=== PATIENT | female | born 1990 | race Caucasian/White ===

== ENCOUNTER 2016-04-05 17:56 | Emergency (ER) | payer BC, OTHER ==
[~2016-04-05] VITALS: Ht 162.6 cm; Wt 67.0 kg
[~2016-04-05 17:56] MED LIST: CLC100 PO; FRRS300 PO; MISC-836; MTR600X PO; MULT-506 PO; OXYC5TAB PO
[2016-04-05 18:10] VITALS: TEMP 36.5; Ht 162.6 cm; Wt 67.0 kg
[2016-04-05] MEDS ORDERED: ONDANSETRON INJ 2 MG/ML 2 ML VIAL IV STA (19:06)
[2016-04-05] MEDS ORDERED: HYDROmorphone INJ 1 MG/ML SYR IV STA (19:06)
[2016-04-05] MEDS ORDERED: KETOROLAC TROMETHAMINE 30 MG/ML VIAL IV STA (19:06)
[2016-04-05] MEDS ORDERED: SODIUM CHLORIDE 0.9% 1000ML 1,000 ML IV STA (19:06)
--- NOTE | 2016-04-05 19:08 | EMERGENCY ROOM VISIT NOTE ---
History Report prepared by Tevin: Nacho Bajwa Under the Supervision of: Dr. Alek Marie M.D. First contact with patient: 18:49 Chief Complaint: ABDOMINAL PAIN Stated Complaint: SEVERE ABDOMINAL PAIN Nursing Triage Summary: Pt in wc to triage. Pt c/o right back and abd pain that began at 1529 today. Denies urinary symptoms. Associated nausea, denies v/d. Denies injury. Denies hx kidney stone, appy. History of Present Illness The patient is a 25 year old female who presents to the Emergency Room with complaints of persistent right sided abdominal pain since 1529 today. The pain radiates to the patient's back. The pain is severe. She also complains of nausea , and denies vomiting or diarrhea. The patient had a section delivery of her first child 4 months ago. She has not had any other surgeries of the abdomen. She denies any history of kidney stones. Source of History: patient Onset: 1529 today Position: abdomen (right) Symptom Intensity: severe Timing: other (persistent) Associated Symptoms: + nausea, No diarrhea, No vomiting Review of Systems See HPI for pertinent positives & negatives. A total of 10 systems reviewed and were otherwise negative. Past Medical & Surgical Medical Problems: (1) delivery delivered Family History No pertinent family history Social History Smoking Status: Never Smoker Housing Status: lives with family Current/Historical Medications Scheduled Ibuprofen Tab (Advil), 400 MG PO DAILY Multivitamin (Multivitamin), 1 TAB PO DAILY Ondasetron Odt (Zofran Odt), 4 MG SL Q6H Tamsulosin Hcl (Flomax), 0.4 MG PO DAILY Scheduled PRN Oxycodone/Acetaminophen 5MG/325MG (Percocet 5MG/325MG), 1-2 TABLETS PO Q4H PRN for Pain Allergies Coded Allergies: No Known Allergies (Verified , 04/05/16) Physical Exam Vital Signs Date Time Temp Pulse Resp B/P Pulse Ox O2 Delivery O2 Flow Rate FiO2 04/05/16 21:50 60 18 126/82 100 Room Air 04/05/16 20:34 61 18 104/59 100 Room Air 04/05/16 18:10 36.5 66 20 121/73 100 Room Air Physical Exam CONSTITUTIONAL: Moderate painful distress. HEENT: No icterus, moist mucous membranes NECK: No meningismus, trachea is midline. CARDIOVASCULAR: Regular rate, normal perfusion RESPIRATORY: Unlabored breathing. Clear to auscultation. GASTROINTESTINAL: Moderate right lower quadrant tenderness. GENITOURINARY: No flank tenderness MUSCULOSKELETAL: Full range of motion NEUROLOGIC: No acute gross focal deficits. PSYCHIATRIC: Normal affect SKIN: Normal for ethnicity. Medical Decision & Procedures ER Provider Diagnostic Interpretation: CT results as stated below per my review and radiologist interpretation. CT SCAN OF THE ABDOMEN AND PELVIS WITH IV CONTRAST CLINICAL HISTORY: Right lower quadrant abdominal pain. COMPARISON STUDY: Abdominal CT dated 08/30/2006. TECHNIQUE: Following the IV administration of 120 cc of Optiray 320, CT scan of the abdomen and pelvis is performed from the lung bases to the proximal femora. Images are reviewed in the axial, sagittal, and coronal planes. IV contrast was administered without complication. Automated dose control exposure was utilized. CT DOSE: 334.59 mGy.cm FINDINGS: Lung bases: The heart is normal in size and without pericardial effusion. The lung bases are clear. Liver: The contrast-enhanced liver is normal in size, contour, and attenuation. There is no intrahepatic biliary ductal dilatation. The hepatic veins and portal veins are patent. Gallbladder: Unremarkable. Spleen: Normal in size and attenuation. Pancreas: Unremarkable. Adrenal glands: Unremarkable. Kidneys: The contrast enhanced kidneys are normal in size. There is a 5 mm obstructing calculus at the right vesicoureteral junction seen on image 374. This causes moderate right hydroureteronephrosis. There is associated right-sided perinephric stranding and fluid. The right kidney enhances heterogeneously as compared to the left. No additional renal calculi are clearly identified on this contrast-enhanced examination. Abdominal vasculature: The abdominal aorta is normal in course and caliber. Bowel: The small bowel and colon are normal in course and caliber. The appendix is well-visualized and normal. Peritoneum: There is no intraperitoneal free air or abdominal ascites. There is a small fat-containing umbilical hernia. Lymphadenopathy: None. Pelvic viscera: The bladder, uterus, and adnexa are normal as visualized. There are bilateral ovarian follicles. Skeletal structures: There are bilateral pars defects at L5. No anterolisthesis is seen at L5-S1. No lytic or blastic lesions are seen. IMPRESSION: 1. There is a 5 mm obstructing calculus at the right vesicoureteral junction. This causes moderate right hydroureteronephrosis. There is associated right-sided perinephric stranding and fluid. 2. The right kidney enhances heterogeneously. This could be related to obstruction/hydronephrosis. Urinary tract infection is not excluded. Correlation with clinical findings and urinalysis will be required. 3. No additional calculi are clearly identified on this contrast-enhanced examination. Electronically signed by: Hector Rodriguez M.D. 04/05/2016 9:51 PM Laboratory Results 04/05/16 19:24 Red Blood Count 4.63, Mean Corpuscular Volume 86.2, Mean Corpuscular Hemoglobin 30.0, Mean Corpuscular Hemoglobin Concent 34.8, Mean Platelet Volume 10.5, Neutrophils (%) (Auto) 82.8, Lymphocytes (%) (Auto) 11.3, Monocytes (%) (Auto) 5.4, Eosinophils (%) (Auto) 0.1, Basophils (%) (Auto) 0.2, Neutrophils # (Auto) 10.02, Lymphocytes # (Auto) 1.37, Monocytes # (Auto) 0.65, Eosinophils # (Auto) 0.01, Basophils # (Auto) 0.02 04/05/16 19:24 Test 04/05/16 19:15 04/05/16 19:24 Urine Color DK YELLOW Urine Appearance CLOUDY (CLEAR) Urine pH 7.5 (4.5-7.5) Urine Specific [place] 1.024 (1.000-1.030) Urine Protein NEG (NEG) Urine Glucose (UA) NEG (NEG) Urine Ketones 1+ (NEG) Urine Occult Blood 3+ (NEG) Urine Nitrite NEG (NEG) Urine Bilirubin NEG (NEG) Urine Urobilinogen NEG (NEG) Urine Leukocyte Esterase MODERATE (NEG) Urine WBC (Auto) 10-30 /hpf (0-5) Urine RBC (Auto) >30 /hpf (0-4) Urine Hyaline Casts (Auto) 5-10 /lpf (0-5) Urine Epithelial Cells (Auto) >30 /lpf (0-5) Urine Bacteria (Auto) 1+ (NEG) Urine Renal Epithelial Cells /lpf (0-5) White Blood Count 12.10 K/uL (4.8-10.8) Red Blood Count 4.63 M/uL (4.2-5.4) Hemoglobin 13.9 g/dL (12.0-16.0) Hematocrit 39.9 % (37-47) Mean Corpuscular Volume 86.2 fL (80-100) Mean Corpuscular Hemoglobin 30.0 pg (25-34) Mean Corpuscular Hemoglobin Concent 34.8 g/dl (32-36) Platelet Count 207 K/uL (130-400) Mean Platelet Volume 10.5 fL (7.4-10.4) Neutrophils (%) (Auto) 82.8 % Lymphocytes (%) (Auto) 11.3 % Monocytes (%) (Auto) 5.4 % Eosinophils (%) (Auto) 0.1 % Basophils (%) (Auto) 0.2 % Neutrophils # (Auto) 10.02 K/uL (1.4-6.5) Lymphocytes # (Auto) 1.37 K/uL (1.2-3.4) Monocytes # (Auto) 0.65 K/uL (0.11-0.59) Eosinophils # (Auto) 0.01 K/uL (0-0.5) Basophils # (Auto) 0.02 K/uL (0-0.2) RDW Standard Deviation 40.0 fL (36.4-46.3) RDW Coefficient of Variation 12.6 % (11.5-14.5) Immature Granulocyte % (Auto) 0.2 % Immature Granulocyte # (Auto) 0.03 K/uL (0.00-0.02) Anion Gap 10.0 mmol/L (3-11) Est Creatinine Clear Calc Drug Dose 84.1 ml/min Estimated GFR () 94.2 Estimated GFR (Non- 81.3 BUN/Creatinine Ratio 17.6 (10-20) Calcium Level 8.9 mg/dl (8.5-10.1) Labs reviewed by ED physician. Medications Administered Medications (Trade) Dose Ordered Sig/Rachna Route Start Time Stop Time Status Last Admin Dose Admin Sodium Chloride (Nss 1000ml) 1,000 ml @ 0 mls/hr Q0M STAT IV 04/05/16 19:06 04/05/16 19:10 DC 04/05/16 19:34 0 MLS/HR Ketorolac Tromethamine (Toradol Inj) 30 mg NOW STAT IV 04/05/16 19:06 04/05/16 19:10 DC 04/05/16 19:34 30 MG Hydromorphone HCl (Dilaudid Inj) 1 mg PRN STAT IV 04/05/16 19:06 04/05/16 19:10 DC 04/05/16 19:33 1 MG Ondansetron HCl (Zofran Inj) 4 mg NOW STAT IV 04/05/16 19:06 04/05/16 19:10 DC 04/05/16 19:33 4 MG ED Course 185: Past medical records reviewed. The patient was evaluated in room B4a. A complete history and physical examination was performed. 190: Zofran 4 mg IV, Dilaudid 1 mg IV, Toradol 30 mg IV, NSS 1000 ml wide open. 2219: Reassessed the patient. Explained everything with her. She verbalized understanding and agreement of the treatment plan. The patient is ready for discharge. 0: Zofran 4 mg PO home pack, Percocet 5/325 mg PO home pack, Flomax 0.4 mg. Medical Decision Differential diagnosis includes appendicitis, ovarian cyst. 25-year-old presents into the emergency room with acute onset of severe right lower quadrant and flank pain. She was in severe painful distress on my examination with moderate lower quadrant tenderness. CT revealed a 5 mm obstructing stone at the right UVJ. She was comfortable on reexamination no distress at 10 PM. We discussed the importance of the stone passes and she agrees to return for any worsening worrisome symptoms. Given prescriptions for Flomax, antiemetics and pain. Impression Primary Impression: Kidney stone Scribe Attestation The scribe's documentation has been prepared under my direction and personally reviewed by me in its entirety. I confirm that the note above accurately reflects all work, treatment, procedures, and medical decision making performed by me. Departure Information Dispostion Home / Self-Care Prescriptions Tamsulosin Hcl (FLOMAX) 0.4 Mg Cap 0.4 MG PO DAILY, #10 CAP Prov: Alek Marie MD 04/05/16 Ondasetron Odt (ZOFRAN ODT) 4 Mg Tab 4 MG SL Q6H for Nausea, #20 TAB Prov: Alek Marie MD 04/05/16 Oxycodone/Acetaminophen 5MG/325MG (PERCOCET 5MG/325MG) Tab 1-2 TABLETS PO Q4H Y for Pain, #20 TAB Prov: Alek Marie MD 04/05/16 Referrals No Doctor, Assigned (PCP) Forms HOME CARE DOCUMENTATION FORM, IMPORTANT VISIT INFORMATION Patient Instructions A Signature Page, Kidney Stones - [facility], Formerly [facility]
[2016-04-05 19:36] LABS: BASO % 0.2 %; BASO ABS # 0.02 K/uL (0-0.2); COMPLETE YES; EOS % 0.1 %; HEMATOCRIT 39.9 % (37-47); IG% 0.2 %; LYMPH % 11.3 %; LYMPH ABS # 1.37 K/uL (1.2-3.4); MEAN CELL VOLUME 86.2 fL (80-100); MEAN CORPUSCULAR HGB CONC 34.8 g/dl (32-36); MEAN PLATELET VOLUME 10.5 fL (7.4-10.4); MONO % 5.4 %; NEUT % 82.8 %; PLATELET COUNT 207 K/uL (130-400); RED BLOOD COUNT 4.63 M/uL (4.2-5.4)
[2016-04-05 19:45] LABS: URINE APPEARANCE CLOUDY (CLEAR); URINE BILIRUBIN NEG (NEG); URINE COLOR DK YELLOW; URINE EPITHELIAL CELL AUTO >30 /lpf (0-5); URINE NITRITE NEG (NEG); URINE PH 7.5 (4.5-7.5); URINE SPECIFIC GRAVITY 1.024 (1.000-1.030); UROBILINOGEN NEG (NEG); ZZUR CULT IF INDIC CLEAN CATCH YES
[2016-04-05 19:51] LABS: BUN/CREATININE RATIO 17.6 (10-20); CALCIUM 8.9 mg/dl (8.5-10.1); CREATININE 0.98 mg/dl (0.60-1.20); POTASSIUM 3.6 mmol/L (3.5-5.1)
[2016-04-05 19:52] LABS: REVIEW REQ? YES; SULFASALICYLIC ACID NEG (NEG)
[2016-04-05 19:54] LABS: MANUAL MICROSCOPIC REQUIRED? NO
[2016-04-05] MEDS ORDERED: OPTIRAY 320 IV PRN (21:00)
[2016-04-05] MEDS ORDERED: IBUP-103 PO (21:10)
--- NOTE | 2016-04-05 21:53 | DIAGNOSTIC IMAGING REPORT ---
CT SCAN OF THE ABDOMEN AND PELVIS WITH IV CONTRAST CLINICAL HISTORY: Right lower quadrant abdominal pain. COMPARISON STUDY: Abdominal CT dated 08/30/2006. TECHNIQUE: Following the IV administration of 120 cc of Optiray 320, CT scan of the abdomen and pelvis is performed from the lung bases to the proximal femora. Images are reviewed in the axial, sagittal, and coronal planes. IV contrast was administered without complication. Automated dose control exposure was utilized. CT DOSE: 334.59 mGy.cm FINDINGS: Lung bases: The heart is normal in size and without pericardial effusion. The lung bases are clear. Liver: The contrast-enhanced liver is normal in size, contour, and attenuation. There is no intrahepatic biliary ductal dilatation. The hepatic veins and portal veins are patent. Gallbladder: Unremarkable. Spleen: Normal in size and attenuation. Pancreas: Unremarkable. Adrenal glands: Unremarkable. Kidneys: The contrast enhanced kidneys are normal in size. There is a 5 mm obstructing calculus at the right vesicoureteral junction seen on image 374. This causes moderate right hydroureteronephrosis. There is associated right-sided perinephric stranding and fluid. The right kidney enhances heterogeneously as compared to the left. No additional renal calculi are clearly identified on this contrast-enhanced examination. Abdominal vasculature: The abdominal aorta is normal in course and caliber. Bowel: The small bowel and colon are normal in course and caliber. The appendix is well-visualized and normal. Peritoneum: There is no intraperitoneal free air or abdominal ascites. There is a small fat-containing umbilical hernia. Lymphadenopathy: None. Pelvic viscera: The bladder, uterus, and adnexa are normal as visualized. There are bilateral ovarian follicles. Skeletal structures: There are bilateral pars defects at L5. No anterolisthesis is seen at L5-S1. No lytic or blastic lesions are seen. IMPRESSION: 1. There is a 5 mm obstructing calculus at the right vesicoureteral junction. This causes moderate right hydroureteronephrosis. There is associated right-sided perinephric stranding and fluid. 2. The right kidney enhances heterogeneously. This could be related to obstruction/hydronephrosis. Urinary tract infection is not excluded. Correlation with clinical findings and urinalysis will be required. 3. No additional calculi are clearly identified on this contrast-enhanced examination. Electronically signed by: Hector Rodriguez M.D. 04/05/2016 9:51 PM
[2016-04-05] MEDS ORDERED: OXYC-57 PO (22:14)
[2016-04-05] MEDS ORDERED: ONDA4TAB10 SL (22:17)
[2016-04-05] MEDS ORDERED: TAMS0.4C38 PO (22:18)
[2016-04-05 22:30] VITALS: BP 123/79; PULSE 68; O2SAT 98
[2016-04-05] MEDS ORDERED: PERCOCET HOME PACK PO ONE (22:30)
[2016-04-05] MEDS ORDERED: ONDANSETRON HOME PACK 4MG OD TAB PO ONE (22:30)
[2016-04-05] MEDS ORDERED: TAMSULOSIN HCL 0.4 MG CAP PO ONE (22:30)
== END 2016-04-05 22:31 | disposition home or self-care (01) ==
LOC: C.EDB 17:57 → C.EDA 22:31
DX: N20.2 Calculus of kidney with calculus of ureter (principal); K42.9 Umbilical hernia without obstruction or gangrene

== ENCOUNTER 2021-05-21 22:13 | Inpatient (IN) ==
--- NOTE | 2021-05-22 00:31 | History & Physical Report ---
Date of Service May 22, 2021 Assessment & Plan (1) 40 weeks gestation of : Plan: Patient changed from 3 to 4 cm, contractions are regular Admit, routine labs, epidural with patient request Anticipate vaginal delivery (2) Previous delivery affecting , antepartum: Plan: Previous op reports both reviewed, no contraindication to [place] Counseled about the risk of TOLAC including uterine rupture, and injury or possible , maternal morbidity or mortality. Patient understands the risk of TOLAC, versus repeat delivery, or failed TOLAC resulting in emergency repeat delivery. Would like to proceed with TOLAC at this time. Per ACOG guidelines can TOLAC after 2 previous deliveries, if no other contraindications. cConsents were signed at the bedside. (3) Anemia affecting in third trimester: Plan: CBC pending History of Present Illness Chief Complaint: Contractions Primary Care Provider: NO PCP Patient is a 30-year-old -0-0-2 at 40 weeks and 0 days dated by last menstrual. Consistent with a 8-week ultrasound who presents to labor and delivery overnight for ongoing or worsening contractions starting earlier yesterday. Contractions are now every 2 to 3 minutes. Denies leaking of fluid. Thinks she lost her mucous plug, denies heavy vaginal bleeding but has had some spotting. Notes good movement. Denies headache, blurry vision, right upper quadrant epigastric pain. Otherwise feeling well. No other complaints. Previous op reports were reviewed lower transverse delivery in 2016 and 2019 at [facility]. 2016 was for intolerance to labor, was emergency. 2019 was a scheduled repeat delivery. Patient desires to TOLAC today. Patient has had adequate care, starting at 9 weeks, however has not been seen since 37 weeks gestation. Allergies Allergy/AdvReac Type Severity Reaction Status Date / Time No Known Allergies Allergy Verified 09/08/18 08:59 Home Medications Medication Instructions Recorded Confirmed Type breast pump #1 ea 09/29/18 Rx [id number] 1 mg 1 tab PO DAILY 05/21/21 05/21/21 History tablet Patient History Medical History (Updated 05/22/21 @ 00:33 by Alpa Flaherty MD, PhD) No known health problems Surgical History (Updated 05/22/21 @ 00:33 by Alpa Flaherty MD, PhD) History of ankle surgery Lt History of section Family History Brother Family history of diabetes mellitus Social History Smoking Status: Former smoker Second Hand Exposure: No; Hx Alcohol Use: No Hx Substance Use: No Preferred Language: Croatian Communication Ability: Effective 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 Beliefs That Will Affect Care: None marital status: Current Living Situation: Spouse Other Information That Helps Us Care for You: No Feels Safe at Home: Yes Safety Concerns: Feels Safe At This Time Assistive Devices: None 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 Review of Systems All systems reviewed & are unremarkable except as noted in HPI & below Physical Exam Constitutional: WD/WN, vitals as above Respiratory: normal respiratory effort, lungs clear to auscultation Cardiovascular: RRR, no murmur, no edema Gastrointestinal (Abdomen): normal bowel sounds, soft, nontender, no hepatosplenomegaly Genitourinary: no vaginal lesions, no adnexal mass OB Exam Abdomen: + fundal height, + vertex and + estimated weight Cx 4/80/-2 (changed from 3/50/-2) Results & Data ([facility]) Vital Signs (Past 12 Hours) Vital Signs Temp Pulse Resp BP 05/21/21 22:24 36.4 C L 74 20 98/59 L Monitoring External Monitor FHT: Baseline 150, moderate variability, positive accelerations, no decelerations, category 1 tracing Tocodynamometer Q 2 to 4 minutes
[2021-05-22 00:57] LABS: Hematocrit (blood only) 38.8 % (37-47); Hemoglobin 13.3 g/dL (12.0-16.0); Mean Corpuscular Hemoglobin 32.8 pg (25-34); Mean Corpuscular Hgb Conc 34.3 g/dL (32-36); Mean Corpuscular Volume 95.6 fL (80-100); Mean Platelet Volume 10.9 fL (7.4-10.4); Platelet Count 167 K/uL (130-400); RDW Coefficient of Variation 13.6 % (11.5-14.5); RDW Standard Deviation 46.8 fL (36.4-46.3); Red Blood Count 4.06 M/uL (4.2-5.4); White Blood Count 13.61 K/uL (4.8-10.8)
--- NOTE | 2021-05-22 06:41 | Labor Progress Brief Note ---
Date of Service May 22, 2021 Subjective Uncomfortable with contractions SROM at 0430, mod mec Cat I tracing Assessment & Plan (1) 40 weeks gestation of : Plan: Anticipate vaginal delivery (2) Previous delivery affecting , antepartum: Plan: Previous op reports both reviewed, no contraindication to TOLAC Counseled about the risk of TOLAC including uterine rupture, and injury or possible , maternal morbidity or mortality. Patient understands the risk of TOLAC, versus repeat delivery, or failed TOLAC resulting in emergency repeat delivery. Would like to proceed with TOLAC at this time. Per ACOG guidelines can TOLAC after 2 previous deliveries, if no other contraindications. cConsents were signed at the bedside. (3) Anemia affecting in third trimester: Admission and Anticipated Discharge Date Admission Date: May 22, 2021 Physical Exam Constitutional: WD/WN, vitals as above Respiratory: normal respiratory effort, lungs clear to auscultation Cardiovascular: RRR, no murmur, no edema Gastrointestinal (Abdomen): normal bowel sounds, soft, nontender, no hepatosplenomegaly Genitourinary: no vaginal lesions, no adnexal mass (c: 9/100/-1 ) Results & Data ([facility]) Vital Signs (Past 12 Hours) Vital Signs Temp Pulse Resp BP 05/22/21 01:24 97 H 120/73 05/21/21 22:24 36.4 C L 74 20 98/59 L
[2021-05-22] MEDS: LACTATED RINGER'S 1,000 ML IV PRN ×2 (07:26→07:53)
--- NOTE | 2021-05-22 07:56 | Obstetrical Progress Note ---
Date of Service May 22, 2021 Assessment & Plan Admission and Anticipated Discharge Date Admission Date: May 22, 2021 Subjective Patient is seen and examined She is known to me from P1 Reviewed her records and confirmed with her. Denies medical problems, smoking/ alcohol/ D use, denies any h/o STD's including HSV, Chlamydia, Gonorrhea h/o prior 2 C section, declined repeat C section and signed an informed consent for TOLAC/ She was admitted in labor and progressed to fully dilatation. Declined Epidural No IV fluids were running and she was having regular painful ctxs when I came in. Recommended IVF and she accepted. VE; 10/100%/+1, she is involuntarily pushing with contractions and head was descending. FHR categ I Plan to monitor closely and start pushing. Results & Data ([facility]) Vital Signs (Past 12 Hours) Vital Signs Temp Pulse Resp BP 05/22/21 07:15 36.5 C 81 20 137/81 05/22/21 06:00 37.3 C 05/22/21 01:24 97 H 120/73 05/21/21 22:24 36.4 C L 74 20 98/59 L
[2021-05-22] MEDS ORDERED: LIDOCAINE 1% LOCAL 20 ML VIAL ONE ×2 (08:04→08:39)
[2021-05-22] MEDS ORDERED: MINERAL OIL 30 ML UDC ONE (08:17)
[2021-05-22] MEDS: OXYTOCIN 30 UNITS/500 ML BAG IV PRN ×2 (08:52→09:38)
[2021-05-22] MEDS ORDERED: oxyCODONE/ACETAMINOPHEN 5mg/325mg TAB PO PRN (09:13)
[2021-05-22] MEDS ORDERED: OXYTOCIN 30 UNITS/500 ML BAG IV PRN (09:13)
[2021-05-22] MEDS ORDERED: BENZOCAINE 20% AER SPR 82.5 GM CAN EXT PRN (09:13)
[2021-05-22] MEDS ORDERED: ACETAMINOPHEN 325 MG TAB PO PRN (09:13)
[2021-05-22] MEDS ORDERED: MEASLES, MUMPS & RUBELLA VIRUS VIAL SQ ONE (09:13)
[2021-05-22] MEDS ORDERED: HYDROCORTISONE ACETATE 25 MG SUPP PR PRN (09:13)
[2021-05-22] MEDS ORDERED: bisacodyL 10 MG SUPP PR PRN (09:13)
[2021-05-22] MEDS ORDERED: DIPHTHERIA/TETANUS/PERTUSSIS 0.5 ML SYR/VIAL IM ONE (09:13)
--- NOTE | 2021-05-22 09:19 | Delivery Summary ---
Vaginal Delivery Summary Date of Service May 22, 2021 Vaginal Delivery Summary Patient was found to be fully dilated and desire to push. She pushed for about 40 minutes and delivered the head without difficulty. The shoulders were delivered with minimal traction and the baby was handed off to the mother. The mouth and nose were suctioned, cord was clamped x2 and cut at 1 minute delay. The baby was vigorously moving and crying. Vagina and perineum were checked for lacerations. There were bilateral first- degree labial lacerations and second-degree vaginal laceration at 7 o'clock position and first-degree small laceration at 5 o'clock position. Patient has not had epidural so she was given lidocaine for local anesthesia. Labial lacerations were repaired with 3-0 Vicryl on SH needle on a continuous manner, excellent hemostasis was achieved. Then the vaginal lacerations were repaired with 2-0 Vicryl in a running locked fashion and there was some oozing in the middle of those repair. Those were controlled with multiple [id number] stitches. Placenta was found to be in the vagina, delivered spontaneously as intact and complete. Fundus was firm and EBL was 200 mL. The repair was oozing minimal blood in the middle, it was repaired with 2-0 Vicryl with [id number] stitches and Gucci powder was placed over and 2 x 2 sponges were placed for pressure and dose to be removed 2 hours. Mom and baby tolerated procedure well. Sponge needle instrument count was correct x2. The baby was a viable male infant Apgars 8/9 and weight is pending. No complications happened and I was present during whole procedure.
[2021-05-22] MEDS: IBUPROFEN 600 MG TAB PO PRN ×3 (09:28→23:17)
[2021-05-22] MEDS: DOCUSATE SODIUM 100 MG CAP PO SCH (19:27)
[2021-05-23] MEDS: IBUPROFEN 600 MG TAB PO PRN ×2 (04:59→08:34)
[2021-05-23 06:52] LABS: Hematocrit (blood only) 32.2 % (37-47); Hemoglobin 10.7 g/dL (12.0-16.0); Mean Corpuscular Hemoglobin 31.9 pg (25-34); Mean Corpuscular Hgb Conc 33.2 g/dL (32-36); Mean Corpuscular Volume 96.1 fL (80-100); Platelet Count 153 K/uL (130-400); RDW Standard Deviation 49.2 fL (36.4-46.3); Red Blood Count 3.35 M/uL (4.2-5.4); White Blood Count 10.32 K/uL (4.8-10.8)
[2021-05-23] MEDS ORDERED: PRENATAL VITAMIN 1 TAB PO SCH (08:00)
--- NOTE | 2021-05-23 08:28 | Obstetrical Progress Note ---
Date of Service May 23, 2021 Subjective Ambulation: ambulating normally Voiding: no voiding problems Passing Gas:: Yes Diet Tolerance:: regular diet Lochia:: Small Feeding Type:: breast feeding Current Pain Level(1-10): 0 doing well. plans for d/c Physical Exam Constitutional WD/WN, vitals as above comfortable abdomen soft and non-tender. fundus firm. no edema. neg Esteban's. for d/c home Results & Data ([facility]) Vital Signs (Past 12 Hours) Vital Signs Temp Pulse Resp BP Pulse Ox 05/23/21 07:50 36.6 C 78 18 97/65 L 05/22/21 23:06 36.8 C 73 14 119/79 96 Laboratory Results Laboratory Results - last 48 hr 05/22/21 05/22/21 05/22/21 00:43 00:43 Unknown WBC 13.61 H RBC 4.06 L Hgb 13.3 Hct 38.8 MCV 95.6 MCH 32.8 MCHC 34.3 RDW Std Deviation 46.8 H RDW Coeff of Sindy 13.6 Plt Count 167 MPV 10.9 H SARS-CoV-2, RNA, NAAT NEGATIVE Blood Type A Positive Antibody Screen NEGATIVE 05/23/21 06:27 WBC 10.32 RBC 3.35 L Hgb 10.7 L Hct 32.2 L MCV 96.1 MCH 31.9 MCHC 33.2 RDW Std Deviation 49.2 H RDW Coeff of Sindy 14.0 Plt Count 153 MPV 11.0 H SARS-CoV-2, RNA, NAAT Blood Type Antibody Screen
[2021-05-23] MEDS: DOCUSATE SODIUM 100 MG CAP PO SCH (08:34)
[2021-05-23] MEDS ORDERED: bisacodyL 5 MG TABEC PO SCH (20:00)
== END 2021-05-23 12:40 | disposition home or self-care (01) | DRG 807 ==
LOC: OPB 22:13 → 4S2 22:14 → 4S1 23:26 → 4S2 05-22 12:10
DX: Z79.899 Other long term (current) drug therapy; D64.9 Anemia, unspecified; O77.0 Labor and delivery complicated by meconium in amniotic fluid; Z87.891 Personal history of nicotine dependence; Z37.0 Single live birth; Z3A.40 40 weeks gestation of pregnancy; O99.02 Anemia complicating childbirth; O70.1 Second degree perineal laceration during delivery; O34.211 Maternal care for low transverse scar from previous cesarean delivery